=== PATIENT | female | born 1965 | race Caucasian/White ===

== ENCOUNTER 2018-11-14 20:24 | Emergency (ER) | payer OTHER ==
[~2018-11-14] VITALS: Ht 157.4 cm; Wt 81.6 kg
[2018-11-14] MEDS ORDERED: NORCO 5-325 TA1 EACH PO (21:10)
[2018-11-14] MEDS ORDERED: Motrin,Rufen800 MG PO (21:10)
[2019-02-05] MEDS ORDERED: CYMBALTA30 MG PO (15:35)
[2019-02-05] MEDS ORDERED: PRINIVIL10 MG PO (15:36)
[2019-02-05] MEDS ORDERED: LIPITOR40 MG PO (15:36)
[2019-02-05] MEDS ORDERED: NITROFURANTOIN100 M3 PO (15:37)
[2019-02-06] MEDS ORDERED: OMEPRAZOLE20 M3 PO (08:55)
[2019-02-09] MEDS ORDERED: CYMBALTA30 MG PO (13:39)
== END 2018-11-14 22:20 | disposition home or self-care (01) ==
LOC: ED 20:24
DX: S82.831A Other fracture of upper and lower end of right fibula, initial encounter for closed fracture (principal); W18.09XA Striking against other object with subsequent fall, initial encounter; Y93.01 Activity, walking, marching and hiking; Y92.098 Other place in other non-institutional residence as the place of occurrence of the external cause; Y99.8 Other external cause status

== ENCOUNTER → 2018-11-17 | Outpatient (CLI) | payer OTHER ==
[~2018-11-17] MED LIST: CYMBALTA30 MG PO; LIPITOR40 MG PO; Motrin,Rufen800 MG PO; NITROFURANTOIN100 M3 PO; NORCO 5-325 TA1 EACH PO; OMEPRAZOLE20 M3 PO; PERCOCET 5-3251 EACH PO; PRINIVIL10 MG PO; VIBRAMYCIN100 MG PO
== END | disposition home or self-care (01) ==
LOC: RESCLI 01:09
DX: Z00.00 Encounter for general adult medical examination without abnormal findings (principal); K58.9 Irritable bowel syndrome, unspecified; S82.891D Other fracture of right lower leg, subsequent encounter for closed fracture with routine healing; M79.7 Fibromyalgia; Z91.14 Patient's other noncompliance with medication regimen; Z79.899 Other long term (current) drug therapy; Z90.49 Acquired absence of other specified parts of digestive tract; X58.XXXD Exposure to other specified factors, subsequent encounter

== ENCOUNTER 2018-12-02 16:47 | Emergency (ER) | payer OTHER ==
[~2018-12-02] VITALS: Ht 157.4 cm; Wt 83.9 kg
[~2018-12-02 16:47] MED LIST changes: -CYMBALTA30 MG PO; -LIPITOR40 MG PO; -NITROFURANTOIN100 M3 PO; -OMEPRAZOLE20 M3 PO; -PERCOCET 5-3251 EACH PO; -PRINIVIL10 MG PO; -VIBRAMYCIN100 MG PO
[2018-12-02] MEDS ORDERED: NORCO 5-325 TA1 EACH PO ×2 (22:22→22:32)
[2018-12-02] MEDS ORDERED: PERCOCET 5-3251 EACH PO (22:40)
[2019-02-05] MEDS ORDERED: CYMBALTA30 MG PO (15:35)
[2019-02-05] MEDS ORDERED: PRINIVIL10 MG PO (15:36)
[2019-02-05] MEDS ORDERED: LIPITOR40 MG PO (15:36)
[2019-02-05] MEDS ORDERED: NITROFURANTOIN100 M3 PO (15:37)
[2019-02-06] MEDS ORDERED: OMEPRAZOLE20 M3 PO (08:55)
[2019-02-09] MEDS ORDERED: CYMBALTA30 MG PO (13:39)
== END 2018-12-02 22:30 | disposition home or self-care (01) ==
LOC: ED 16:47
DX: S82.831A Other fracture of upper and lower end of right fibula, initial encounter for closed fracture (principal); X50.1XXA Overexertion from prolonged static or awkward postures, initial encounter; Y93.01 Activity, walking, marching and hiking; Y92.89 Other specified places as the place of occurrence of the external cause; Y99.9 Unspecified external cause status

== ENCOUNTER → 2018-12-30 | Outpatient (CLI) | payer OTHER ==
[~2018-12-30] MED LIST changes: +CYMBALTA30 MG PO; +LIPITOR40 MG PO; +NITROFURANTOIN100 M3 PO; +OMEPRAZOLE20 M3 PO; +PERCOCET 5-3251 EACH PO; +PRINIVIL10 MG PO; +VIBRAMYCIN100 MG PO
[2018-12-30 15:10] LABS: BILIRUBIN NEGATIVE (NEGATIVE); BLOOD NEGATIVE (NEGATIVE); CLARITY CLEAR (CLEAR); COLOR YELLOW (YELLOW); GLUCOSE NEGATIVE (NEGATIVE); KETONE TRACE (NEGATIVE); LEUKO ESTERASE 1+ (NEGATIVE); NITRITE POSITIVE (NEGATIVE); SPECIFIC GRAVITY >= 1.030 (1.005-1.030); UROBILINOGEN 0.2 E.U./dl (0.2-1.0)
[2018-12-30 15:20] LABS: MUCOUS 2+; WBC 21-30 wbc/hpf (0-5)
[2018-12-30 15:21] LABS: BACTERIA 2+
== END | disposition home or self-care (01) ==
LOC: RESCLI 02:41
PROVIDERS: Internal Medicine Nephrology
DX: E78.00 Pure hypercholesterolemia, unspecified (principal); I10 Essential (primary) hypertension; F33.1 Major depressive disorder, recurrent, moderate; K58.9 Irritable bowel syndrome, unspecified; M79.7 Fibromyalgia; R30.0 Dysuria; S82.831G Other fracture of upper and lower end of right fibula, subsequent encounter for closed fracture with delayed healing; Z79.899 Other long term (current) drug therapy; Z90.49 Acquired absence of other specified parts of digestive tract; Z88.8 Allergy status to other drugs, medicaments and biological substances; X58.XXXD Exposure to other specified factors, subsequent encounter

== ENCOUNTER → 2019-01-21 | Outpatient (CLI) | payer OTHER | END | disposition home or self-care (01) | LOC: ORTHO 02:03 | DX: S82.891D Other fracture of right lower leg, subsequent encounter for closed fracture with routine healing (principal); X58.XXXD Exposure to other specified factors, subsequent encounter ==

== ENCOUNTER 2019-01-27 16:38 | Emergency (ER) | payer OTHER ==
[~2019-01-27] VITALS: Ht 157.4 cm; Wt 81.6 kg
[~2019-01-27 16:38] MED LIST changes: -CYMBALTA30 MG PO; -LIPITOR40 MG PO; -NITROFURANTOIN100 M3 PO; -OMEPRAZOLE20 M3 PO; -PRINIVIL10 MG PO; -VIBRAMYCIN100 MG PO
[2019-01-27] MEDS ORDERED: VIBRAMYCIN100 MG PO (17:01)
[2019-02-05] MEDS ORDERED: CYMBALTA30 MG PO (15:35)
[2019-02-05] MEDS ORDERED: LIPITOR40 MG PO (15:36)
[2019-02-05] MEDS ORDERED: PRINIVIL10 MG PO (15:36)
[2019-02-05] MEDS ORDERED: NITROFURANTOIN100 M3 PO (15:37)
[2019-02-06] MEDS ORDERED: OMEPRAZOLE20 M3 PO (08:55)
[2019-02-09] MEDS ORDERED: CYMBALTA30 MG PO (13:39)
== END 2019-01-27 17:13 | disposition home or self-care (01) ==
LOC: ED 16:38
DX: S80.862A Insect bite (nonvenomous), left lower leg, initial encounter (principal); M79.7 Fibromyalgia; W57.XXXA Bitten or stung by nonvenomous insect and other nonvenomous arthropods, initial encounter; Y93.89 Activity, other specified; Y92.89 Other specified places as the place of occurrence of the external cause; Y99.8 Other external cause status

== ENCOUNTER → 2019-02-22 | Outpatient (CLI) | payer OTHER ==
[~2019-02-22] MED LIST changes: +CYMBALTA30 MG PO; +LIPITOR40 MG PO; +NITROFURANTOIN100 M3 PO; +OMEPRAZOLE20 M3 PO; +PRINIVIL10 MG PO; +VIBRAMYCIN100 MG PO
== END | disposition home or self-care (01) ==
LOC: WOUNDCARE 02-16 01:42 → ORTHO 00:20 → WOUNDCARE 08:40 → ORTHO 18:12
DX: S82.891G Other fracture of right lower leg, subsequent encounter for closed fracture with delayed healing (principal); I10 Essential (primary) hypertension; X58.XXXD Exposure to other specified factors, subsequent encounter